=== PATIENT | female | born 1990 | race Caucasian/White ===

== ENCOUNTER 2017-05-01 19:30 | Emergency (ER) | payer OTHER ==
[2017-05-01 19:38] VITALS: RESP 16; TEMP 98.4
--- NOTE | 2017-05-01 19:52 | EDPHY ---
H & P Stated Complaint: allergic reaction to unk allergen; itchy, scratchy throat Time Seen by Provider: 05/01/17 19:55 HPI/ROS: CHIEF COMPLAINT: Suspected allergic reaction HISTORY OF PRESENT ILLNESS: This patient is a 26-year-old female who presents to the Emergency Department concerned that she may be experiencing an allergic reaction to an unknown allergen beginning at 1715 today. She reports mild dyspnea, periorbital swelling, rhinorrhea, sneezing, and pruritus to her face and throat. She denies rash or difficulty swallowing. She took a dose of an unspecified OTC antihistamine at 1730 today without sufficient improvement to her complaints. She denies any new known exposures. She had a similar but more severe episode one month ago that was effectively alleviated with use of Benadryl. She has not been evaluated by an veterinary practitioner. REVIEW OF SYSTEMS: A ten point review of systems was performed and is negative with the exception of the items mentioned in the HPI. - Personal History LMP (Females 10-55): 1-7 Days Ago Current Tetanus/Diphtheria Vaccine: Yes - Medical/Surgical History Hx Asthma: Yes Hx Chronic Respiratory Disease: No Hx Diabetes: No Hx Cardiac Disease: No Hx Renal Disease: No Hx Cirrhosis: No Hx Alcoholism: No Hx HIV/AIDS: No Hx Splenectomy or Spleen Trauma: No Other PMH: PSHx: tonsillectomy. PMHx: environmental allergies, kidney infection , childhood asthma - Social History Smoking Status: Never smoked Additional Social History: Works at the [employer]. She is single. - Physical Exam Exam: General Appearance: Alert. Vital signs reviewed and are normal. Eyes: Pupils equal and round, no conjunctival injection, no discharge. Anicteric. ENT, Mouth: Mucous membranes are moist, no oropharyngeal erythema or edema. Swallowing easily. Neck: No lymphadenopathy, supple. Respiratory: Lungs are clear to auscultation; no wheezes, rales, or rhonchi. Cardiovascular: Regular rate and rhythm; no murmur, rub, or gallop. Gastrointestinal: Abdomen is soft and nontender, no masses or organomegaly, bowel sounds normal. Skin: Warm and dry, no rashes on exposed skin, normal color. Back: Nontender to palpation over the thoracolumbar spine. Neurological: Alert and oriented. Moving all four extremities easily and equally. Psychiatric: Normal affect. Constitutional: Initial Vital Signs Temperature (C) 36.9 C 05/01/17 19:34 Heart Rate 65 05/01/17 19:34 Respiratory Rate 16 05/01/17 19:34 Blood Pressure 115/78 05/01/17 19:34 O2 Sat (%) 95 05/01/17 19:34 O2 Delivery Mode Room Air Allergies/Adverse Reactions: No Known Allergies Allergy (Unverified 05/01/17 19:33) Home Medications: Medication Instructions Recorded predniSONE 20 mg PO DAILY #3 tablet 05/01/17 Medical Decision Making ED Course/Re-evaluation: 26-year-old female presents with features of an allergic reaction including complaints of pruritus to her face and neck, mild subjective dyspnea, rhinorrhea , and periorbital swelling. She has no known allergens and denies any new recent exposures. She has a normal exam. There is no visible facial edema or oral pharyngeal edema. She is not tachypneic and O2 sat is appropriate. I am not concerned that this will develop into acute anaphylaxis. I discussed with her plan to treat using prednisone and Benadryl over the next three days. She is given a referral to an veterinary practitioner to follow-up with. She will be discharged home in good condition with customary return precautions. Differential Diagnosis: I considered a differential diagnosis that includes but is not limited to anaphylaxis, urticaria, allergic reaction to food, and environmental allergies. Departure - Departure Disposition: Home, Routine, Self-Care Clinical Impression: Allergic reaction Qualifiers: Encounter type: initial encounter Qualified Code(s): T78.40XA - Allergy, unspecified, initial encounter Condition: Good Instructions: Allergies (ED), General Allergic Reaction (ED) Additional Instructions: 1. Take Benadryl as directed for the next 2-3 days or until your symptoms have completely subsided. 2. Take Prednisone as prescribed over the next 3 days. 3. I recommend establishing care with a local primary care provider. We have included a referral to our on-call provider, Dr. Martins. We have also included the information of a local veterinary practitioner. I recommend visiting an veterinary practitioner for further evaluation of what may be causing your reactions. 4. Return to the Emergency Department if you experience difficulty breathing, difficulty swallowing, rash, or for other serious concerns. Referrals: Maria Teresa Spangler MD [[facility] [place] - As per Instructions Pramod Rodríguez DO [Doctor of Osteopathy] - As per Instructions Prescriptions: predniSONE 20 mg PO DAILY #3 tablet Report Scribed for: Magalis Martinez Report Scribed by: Sara Bennett Date of Report: 05/01/17 Physician Review and Approval Statement: 05/01/17 19:52 Portions of this note were transcribed by the medical record administrator. I, Dr. Magalis Martinez, personally performed the history, physical exam, and medical decision- making; and confirmed the accuracy of the information in the transcribed note.
[2017-05-01 20:25] VITALS: BP 119/69; PULSE 61; O2SAT 99
== END 2017-05-01 20:24 | disposition home or self-care (01) ==
DX: T78.40XA Allergy, unspecified, initial encounter (principal); J45.909 Unspecified asthma, uncomplicated

== ENCOUNTER 2018-02-12 17:30 | Emergency (ER) | payer OTHER ==
--- NOTE | 2018-02-12 17:58 | EDPHY ---
H & P Source: Patient Exam Limitations: No limitations - Medical/Surgical History Hx Asthma: Yes Hx Chronic Respiratory Disease: No Hx Diabetes: No Hx Cardiac Disease: No Hx Renal Disease: No Hx Cirrhosis: No Hx Alcoholism: No Hx HIV/AIDS: No Hx Splenectomy or Spleen Trauma: No Other PMH: PSHx: tonsillectomy. PMHx: environmental allergies, kidney infection , childhood asthma - Social History Smoking Status: Never smoked Time Seen by Provider: 02/12/18 17:57 HPI/ROS: HPI: This is a 27-year-old female who presents with Chief Complaint: Back pain Location: Right lower quadrant Quality: Pain Duration: Today Signs and Symptoms: No bleeding, no radiation, no numbness, no weakness, no tingling, no incontinence, no decreased range of motion, no swelling, + pain, no fever Timing: Worsening Severity: 06/13 Context: Patient reports that she has a history of urinary tract infection, presents with right lower quadrant nonradiating, constant, sharp pain that started today. She noted approximately 1 week ago she had upper right flank pain. Denies any urinary symptoms/vaginal discharge/concern for STD. Last pelvic exam was 1 year ago. No history of ovarian cyst. Started her menses today. Reports that this pain feels different than cramping. Decreased appetite. Denies nausea, vomiting, diarrhea. No history of kidney stones. No blood in her urine. Modifying Factors: CBD and gummy prior to arrival with moderate relief of pain Comment: ROS: see HPI Constitutional: No fever, no chills, no weight loss Eyes: No blurred vision Respiratory: No shortness of breath, no cough Cardiovascular: No chest pain Gastrointestinal: No nausea, no vomiting no diarrhea Genitourinary: No dysuria Extremities: No myalgias Neurologic: No weakness, no numbness Skin: No rashes Hematologic: No bruising, no bleeding MEDICAL/SURGICAL/SOCIAL HISTORY: PSHx: tonsillectomy PMHx: environmental allergies, kidney infection, childhood asthma Social history: Employed. CONSTITUTIONAL: Nontoxic and well-appearing young adult white female, awake and alert, no obvious distress HEENT: Atraumatic and normocephalic. NECK: supple, no midline tenderness, flexion 45 degrees, extension 45 degrees, right and left lateral flexion 45 degrees. No meningismus. Cardiovascular: Normal S1/S2, regular rate, regular rhythm, without murmur rub or gallop. PULMONARY/CHEST: Symmetrical and nontender. no crepitus. Clear to auscultation bilaterally. Good air movement. No accessory muscle usage. ABDOMEN: Soft, nondistended, moderate right lower quadrant tenderness, no rebound, no guarding, no organomegaly. PELVIC: no pain with rocking; bilateral hips flexion 125 degrees, extension 30 degrees, with no pain internal rotation and no pain external rotation. BACK: No midline tenderness, no paraspinous spasm, deep tendon reflexes 2/2, no pain with straight leg raise, No foot drop. Achilles reflexes are equal bilaterally. Able to walk on heels and toes without difficulty. EXTREMITIES: 2/2 pulses, strength 5/5, DIP/PIP/MCP flexion/extension intact with good light touch sensation. no deformities, no clubbing, no cyanosis or edema. NEUROLOGICAL: no focal neuro deficits. GCS 15. Light touch sensation intact. SKIN: Warm and dry, no erythema. no rash. Good capillary refill. (Sherry Magaña) Constitutional: Initial Vital Signs Temperature (C) 37.2 C 02/12/18 17:55 Heart Rate 85 02/12/18 17:55 Respiratory Rate 16 02/12/18 17:55 Blood Pressure 112/67 02/12/18 17:55 O2 Sat (%) 94 02/12/18 17:55 O2 Delivery Mode Room Air Allergies/Adverse Reactions: No Known Allergies Allergy (Unverified 02/12/18 17:55) Medical Decision Making - Diagnostics Imaging Results: Imaging Impressions Abdomen Ultrasound 02/12/18 18:33 Impression: Visualized appendix measuring at upper limits of normal at up to 6 mm with associated appendicolith. A very mild or early appendicitis is not excluded. Consider CT with contrast as clinically indicated. Findings were communicated by telephone with Dr. Sherry Magaña at 02/12/2018 21 :12 Pelvic/Renal Ultrasound 02/12/18 18:33 Impression: Unremarkable pelvic ultrasound. No evidence of right adnexal pathology Abdomen CT 02/12/18 21:12 Impression: Appendicolith with borderline appendicitis by size, but without appreciable periappendiceal inflammation at this time. Findings were communicated by telephone with Dr. Sherry Magaña at 02/12/2018 22 :40 ED Course/Re-evaluation: The patient was evaluated and managed by the physician's chef's assistant. My cosignature indicates that I reviewed the chart and I agree with the findings and plan of care as documented. I am the secondary supervising physician. ( Loretta Conley) Urinalysis, pelvic ultrasound, limited ultrasound ordered Urinalysis shows trace bacteria and trace blood; no clear signs of infection or hematuria. Vital signs reviewed and stable. No systemic signs. Patient has politely declined laboratory workup except if ultrasound is positive. 2: Called by radiologist who advised that pelvic ultrasound is grossly normal. Right lower quadrant ultrasound shows 6 mm appendix with fecalith which is equivocal. Decision made to order labs in order CT abdomen and pelvis scan to further evaluate. 0: Labs reviewed and grossly unremarkable including no leukocytosis. 2234: Called by radiologist who advises that CT abdomen and pelvis scan shows no signs of acute appendicitis; Appendicolith with borderline increased in size , but without appreciable periappendiceal inflammation at this time. Discussed with patient getting a General surgery consult in the emergency room or outpatient follow-up. Reassessed abdomen which is soft and nontender. Patient prefers to follow up outpatient. Abdomen soft and nontender at this time. Passed p.o. Trial prior to discharge. This patient was seen under the supervision of my secondary supervising physician. I evaluated care for this patient independently. Discussed this patient with attending. (Sherry Magaña) Differential Diagnosis: Abdominal pain in a female including but not limited to ovarian cyst, pelvic inflammatory disease, ovarian torsion, urinary tract infection, and appendicitis. (Sherry Magaña) - Data Points Laboratory Results: Laboratory Results 02/12/18 21:33 02/12/18 21:33 02/12/18 02/12/18 02/12/18 21:33 21:33 18:00 WBC 5.90 10^3/uL 10^3/uL (3.80-9.50) RBC 4.75 10^6/uL 10^6/uL (4.18-5.33) Hgb 13.9 g/dL g/dL (12.6-16.3) Hct 40.7 % % (38.0-47.0) MCV 85.7 fL fL (81.5-99.8) MCH 29.3 pg pg (27.9-34.1) MCHC 34.2 g/dL g/dL (32.4-36.7) RDW 13.2 % % (11.5-15.2) Plt Count 271 10^3/uL 10^3/uL (150-400) MPV 10.6 fL fL (8.7-11.7) Neut % (Auto) 56.4 % % (39.3-74.2) Lymph % (Auto) 29.0 % % (15.0-45.0) Sanborn % (Auto) 9.2 % % (4.5-13.0) Eos % (Auto) 4.7 % % (0.6-7.6) Baso % (Auto) 0.5 % % (0.3-1.7) Nucleat RBC Rel Count 0.0 % % (0.0-0.2) Absolute Neuts (auto) 3.33 10^3/uL 10^3/uL (1.70-6.50) Absolute Lymphs (auto) 1.71 10^3/uL 10^3/uL (1.00-3.00) Absolute Monos (auto) 0.54 10^3/uL 10^3/uL (0.30-0.80) Absolute Eos (auto) 0.28 10^3/uL 10^3/uL (0.03-0.40) Absolute Basos (auto) 0.03 10^3/uL 10^3/uL (0.02-0.10) Absolute Nucleated RBC 0.00 10^3/uL 10^3/uL (0-0.01) Immature Gran % 0.2 % % (0.0-1.1) Immature Gran # 0.01 10^3/uL 10^3/uL (0.00-0.10) Sodium 138 mEq/L mEq/L (135-145) Potassium 3.8 mEq/L mEq/L (3.5-5.2) Chloride 99 mEq/L mEq/L (97-110) Carbon Dioxide 26 mEq/l mEq/l (22-31) Anion Gap 13 mEq/L mEq/L (8-16) BUN 11 mg/dL mg/dL (7-23) Creatinine 0.6 mg/dL mg/dL (0.6-1.0) Estimated GFR > 60 Glucose 84 mg/dL mg/dL (70-100) Calcium 9.6 mg/dL mg/dL (8.5-10.4) Total Bilirubin 0.6 mg/dL mg/dL (0.1-1.4) AST 20 IU/L IU/L (14-46) ALT 29 IU/L IU/L (9-52) Alkaline Phosphatase 47 IU/L IU/L (38-126) Total Protein 7.2 g/dL g/dL (6.3-8.2) Albumin 4.3 g/dL g/dL (3.5-5.0) Urine Color YELLOW Urine Appearance CLEAR Urine pH 7.0 (5.0-7.5) Ur Specific Valentine 1.018 (1.002-1.030) Urine Protein NEGATIVE (NEGATIVE) Urine Ketones NEGATIVE (NEGATIVE) Urine Blood 1+ H (NEGATIVE) Urine Nitrate NEGATIVE (NEGATIVE) Urine Bilirubin NEGATIVE (NEGATIVE) Urine Urobilinogen NEGATIVE EU EU (0.2-1.0) Ur Leukocyte Esterase NEGATIVE (NEGATIVE) Urine RBC 1-3 /hpf /hpf (0-3) Urine WBC 1-3 /hpf /hpf (0-3) Ur Epithelial Cells TRACE /lpf /lpf (NONE-1+) Urine Bacteria TRACE /hpf H /hpf (NONE SEEN) Urine Mucus 1+ /lpf /lpf (NONE-1+) Urine Glucose NEGATIVE (NEGATIVE) Departure - Departure Disposition: Home, Routine, Self-Care Clinical Impression: Fecalith of appendix, Appendicolith Condition: Good Instructions: Laparoscopic Appendectomy (DC), Acute Abdominal Pain (ED) Additional Instructions: Consume a minimum of 8-10 glasses of water or electrolyte fluid replacement drinks that include Gatorade, Powerade, Pedialyte. Eat a bland diet for the next 48 hours and then slowly advance as tolerated. Please call for follow-up with Dr. Genao within the next 3-5 days. Return to the Emergency Room if symptoms do not resolve in the next 48-72 hours , you spike a fever > 102 F, or experience intractable abdominal pain/nausea/ vomiting. Follow-Up: Please follow-up as noted above. Follow-up sooner if your condition worsens or if you develop any new problems. Call as soon as possible for an appointment. Be clear when you call for an appointment that this is an Emergency Department follow-up. Contact the Emergency Department if you have trouble arranging follow-up care. Our referrals are not based on your insurance network. When time allows, contact your insurance carrier to verify the referral physician is in your plan. If not, get a referral for an in-network operations specialist. Referrals: Jackeline Genao MD [Medical Doctor] - 5-7 days, call for appt. Stand Alone Forms: Work Excuse
[2018-02-12 21:41] LABS: PLATELET COUNT 271 10^3/uL (150-400)
[2018-02-12] MEDS ORDERED: IOPAMIDOL (ISOVUE-300) 100 ML BTL ONE (21:51)
[2018-02-12 22:49] VITALS: BP 125/84
== END 2018-02-12 22:49 | disposition home or self-care (01) ==
DX: K38.1 Appendicular concretions (principal)
CPT/HCPCS: Q9967